=== PATIENT | male | born 1995 | race Caucasian/White ===

== ENCOUNTER 2020-03-04 10:14 | Emergency (ER) | payer BC, OTHER ==
--- NOTE | 2020-03-04 12:04 | RAD REPORT ---
EXAM DESCRIPTION: RAD -Hand Left 3 View - 03/04/2020 11:35 am CLINICAL HISTORY: Left hand pain status post injury FINDINGS: No fracture or dislocation is seen. A soft tissue laceration first digit. 3 millimeter round foreign body within the soft tissues adjacen t to third and fourth metacarpals
[2020-03-04] MEDS ORDERED: LIDOCAINE 1% W/EPI 1:100,000 MDV 20 ML VIAL ONE (12:30)
[2020-03-04] MEDS ORDERED: CEPHALEXIN 250 MG CAP ONE (12:46)
[2020-03-04] MEDS ORDERED: DOXYCYCLINE 100 MG CAP PO ONE (12:46)
[2020-03-04] MEDS ORDERED: TETANUS & DIPHTHERIA TOX,ADULT 0.5 ML VIAL ONE (12:46)
--- NOTE | 2020-03-04 13:12 | EDPHYS ---
Physician Documentation [facility] Name: Crispin Ruiz Age: 24 yrs Sex: Male : 1995 Arrival Date: 03/04/2020 Time: 10:17 Bed 24 Private MD: ED Physician Nnamdi Nichole HPI: 03/04 12:55 This 24 yrs old Male presents to ER via Ambulatory with complaints of Thumb julia Injury. 12:55 The patient or guardian reports decreased range of motion, a laceration, pain. The julia complaints affect the MCP of left thumb. Context: The problem was sustained outdoors. Onset: The symptoms/episode began/occurred just prior to arrival. Modifying factors: The symptoms are alleviated by holding still, the symptoms are aggravated by movement. Associated signs and symptoms: The patient has no apparent associated signs or symptoms. Severity of symptoms: At their worst the symptoms were mild, in the emergency department the symptoms are unchanged. The patient has not experienced similar symptoms in the past. Historical: - Allergies: 10:40 No Known Allergies; sv - PMHx: 10:40 None; sv - PSHx: 10:40 None; sv - Immunization history:: Flu vaccine is not up to date. - Social history:: Smoking status: Patient denies any tobacco usage or history of. - Family history:: not pertinent. ROS: 12:55 Constitutional: Negative for fever, chills, and weight loss, Eyes: Negative for injury, julia pain, redness, and discharge, ENT: Negative for injury, pain, and discharge, Neck: Negative for injury, pain, and swelling, Cardiovascular: Negative for chest pain, palpitations, and edema, Respiratory: Negative for shortness of breath, cough, wheezing, and pleuritic chest pain, Abdomen/GI: Negative for abdominal pain, nausea, vomiting, diarrhea, and constipation, Back: Negative for injury and pain, : Negative for injury, bleeding, discharge, and swelling, Skin: Negative for injury, rash, and discoloration, Neuro: Negative for headache, weakness, numbness, tingling, and seizure, Psych: Negative for depression, anxiety, suicide ideation, homicidal ideation, and hallucinations, Allergy/Immunology: Negative for hives, rash, and allergies, Endocrine: Negative for neck swelling, polydipsia, polyuria, polyphagia, and marked weight changes, Hematologic/Lymphatic: Negative for swollen nodes, abnormal bleeding, and unusual bruising. 12:55 MS/extremity: Positive for decreased range of motion, pain, tenderness. Exam: 12:55 Constitutional: This is a well developed, well nourished patient who is awake, alert, julia and in no acute distress. Head/Face: Normocephalic, atraumatic. Eyes: Pupils equal round and reactive to light, extra-ocular motions intact. Lids and lashes normal. Conjunctiva and sclera are non-icteric and not injected. Cornea within normal limits. Periorbital areas with no swelling, redness, or edema. ENT: Nares patent. No nasal discharge, no septal abnormalities noted. Tympanic membranes are normal and external auditory canals are clear. Oropharynx with no redness, swelling, or masses, exudates, or evidence of obstruction, uvula midline. Mucous membranes moist. Neck: Trachea midline, no thyromegaly or masses palpated, and no cervical lymphadenopathy. Supple, full range of motion without nuchal rigidity, or vertebral point tenderness. No Meningismus. Chest/axilla: Normal chest wall appearance and motion. Nontender with no deformity. No lesions are appreciated. Cardiovascular: Regular rate and rhythm with a normal S1 and S2. No gallops, murmurs, or rubs. Normal PMI, no JVD. No pulse deficits. Respiratory: Lungs have equal breath sounds bilaterally, clear to auscultation and percussion. No rales, rhonchi or wheezes noted. No increased work of breathing, no retractions or nasal flaring. Abdomen/GI: Soft, non-tender, with normal bowel sounds. No distension or tympany. No guarding or rebound. No evidence of tenderness throughout. Back: No spinal tenderness. No costovertebral tenderness. Full range of motion. Male : Normal genitalia with no discharge or lesions. Skin: Warm, dry with normal turgor. Normal color with no rashes, no lesions, and no evidence of cellulitis. Neuro: Awake and alert, GCS 15, oriented to person, place, time, and situation. Cranial nerves II-XII grossly intact. Motor strength 5/5 in all extremities. Sensory grossly intact. Cerebellar exam normal. Normal gait. Psych: Awake, alert, with orientation to person, place and time. Behavior, mood, and affect are within normal limits. 12:55 Musculoskeletal/extremity: ROM: intact in all extremities, full active range of motion, full passive range of motion, in the lateral aspect of left hand, Circulation is intact in all extremities. Sensation intact. Compartment Syndrome exam of affected extremity: is normal. no pain, with passive ROM, no numbness, no tingling, no sensation deficit. Vital Signs: 10:40 BP 105 / 99; Pulse 61; Resp 16; Temp 98.1; Pulse Ox 100% ; Weight 70.31 kg; Height 6 sv ft. 0 in. (182.88 cm); 10:40 Body Mass Index 21.02 (70.31 kg, 182.88 cm) sv Laceration: 13:10 Wound Repair of 3.5cm ( 1.4in ) subcutaneous laceration to dorsal aspect of proximal julia phalanx of left thumb and palmar aspect of proximal phalanx of left thumb and MCP of left thumb. Linear shaped.. Distal neuro/vascular/tendon intact. Anesthesia: Local anesthetic administered with 8 mls of 1% lidocaine w/ Epi. Wound prep: Moderate cleansing, Copious irrigation. Skin closed with 8 5-0 Prolene using vertical mattress sutures and sterile technique. Dressed with Neosporin, pressure dressing, non-adherent dressing. Patient tolerated well. MDM: 11:52 Patient medically screened. [facility] 13:02 Differential diagnosis: open fracture. Data reviewed: vital signs, nurses notes, [facility] radiologic studies, plain films. Data interpreted: contact center consultant: rate is 61 beats/min, rhythm is regular, Pulse oximetry: on room air is 100 %. Test interpretation: by ED physician or midlevel provider: plain radiologic studies. Counseling: I had a detailed discussion with the patient and/or guardian regarding: the historical points, exam findings, and any diagnostic results supporting the discharge/admit diagnosis, lab results, radiology results, the need for outpatient follow up, for definitive care, a hand specialist. 13:10 Physician consultation: Arash Montelongo MD and will see patient in office, tomorrow 12 [facility] 2 pm. 03/04 10:47 Order name: Hand Left 3 View XRAY sv 03/04 12:23 Order name: Prolene, Sutures; Complete Time: 12:25 [facility] 03/04 12:23 Order name: Dressing - Wound; Complete Time: 12:25 [facility] 03/04 12:23 Order name: Gloves, Sterile; Complete Time: 12:25 [facility] 03/04 12:23 Order name: Setup Suture Tray; Complete Time: 12:25 [facility] 03/04 13:10 Order name: Splint - Thumb Spica; Complete Time: 13:25 [facility] Administered Medications: 12:36 Drug: Doxycycline 200 mg Route: PO; 12:55 Follow up: Response: No adverse reaction; Medication administered at discharge. 12:36 Drug: KeFLEX 500 mg Route: PO; 12:55 Follow up: Response: Medication administered at discharge. 12:37 Drug: Lidocaine-Epinephrine -1%: (1:100,000) 5 ml {Note: adminstered by moreno Perez MD.} Volume: 20 ml; Route: Infiltration; Site: wound; 12:54 Drug: Tetanus-Diphtheria Toxoid Adult 0.5 ml {Furn[employer] Combination [employer]st: [employer]. Exp: 06/15/2021. Lot #: [id number]. } Route: IM; Site: left deltoid; 13:34 Follow up: Response: No adverse reaction 13:12 Drug: Neosporin Ointment 1 application Route: Topical; Site: affected area; Disposition: 03/04/20 13:12 Discharged to Home. Impression: Laceration without foreign body of left hand - thumb. - Condition is Stable. - Discharge Instructions: Laceration Care, Adult, Laceration Care, Adult, [id number]. - Prescriptions for Keflex 500 mg Oral Capsule - take 1 capsule by ORAL route every 6 hours for 7 days; 28 capsule. Tylenol- Codeine #3 300-30 mg Oral Tablet - take 2 tablets by ORAL route every 6 hours As needed; 24 tablet. Doxycycline Hyclate 100 mg Oral Tablet - take 1 tablet by ORAL route every 12 hours; 14 tablet. - Medication Reconciliation Form, Thank You Letter, Antibiotic Education, Prescription Opioid Use form. - Follow up: Private Physician; When: 2 - 3 days; Reason: Recheck today's complaints, Re-evaluation by your physician. Follow up: Arash Montelongo; When: 2 - 3 days; Reason: Recheck today's complaints, Re-evaluation by your physician. - Problem is new. - Symptoms have improved. Signatures: Dispatcher [employer] Gloria Sy RN RN Nnamdi Paula MD MD cha Smirch, Shelby, RN RN ss Corrections: (The following items were deleted from the chart) 13:34 13:12 03/04/2020 13:12 Discharged to Home. Impression: Laceration without foreign body ss of left hand - thumb. Condition is Stable. Forms are Medication Reconciliation Form, Thank You Letter, Antibiotic Education, Prescription Opioid Use. Follow up: Private Physician; When: 2 - 3 days; Reason: Recheck today's complaints, Re-evaluation by your physician. Follow up: Arash Montelongo; When: 2 - 3 days; Reason: Recheck today's complaints, Re-evaluation by your physician. Problem is new. Symptoms have improved. julia
--- NOTE | 2020-03-04 13:12 | ER ---
Nurse's Notes [facility] Name: Crispin Ruiz Age: 24 yrs Sex: Male : 1995 Arrival Date: 03/04/2020 Time: 10:17 Bed 24 Private MD: Diagnosis: Laceration without foreign body of left hand-thumb Presentation: 03/04 10:39 Chief complaint: Patient states: laceration to left thumb with a cleaning knife. sv Coronavirus screen: Client denies travel out of the [place] in the last 14 days. At this time, the client does not indicate any symptoms associated with coronavirus-19. Ebola Screen: No symptoms or risks identified at this time. Risk Assessment: Do you want to hurt yourself or someone else? Patient reports no desire to harm self or others. Onset of symptoms was March 04, 2020. 10:39 Method Of Arrival: Ambulatory sv 10:39 Acuity: CHEMA 3 sv Triage Assessment: 10:39 General: Appears in no apparent distress. uncomfortable, Behavior is calm, cooperative, sv appropriate for age. Pain: Pain: Complains of pain in left thumb. 10:39 Neuro: Level of Consciousness is awake, alert, obeys commands, Oriented to person, sv place, time, situation, Gait is steady. Respiratory: Respiratory effort is even, unlabored. Injury Description: Laceration sustained to dorsal aspect of proximal phalanx of left thumb is 2.6 to 7.5 cm long, mild bleeding noted. 10:39 Musculoskeletal: Range of motion: intact in all extremities. sv Historical: - Allergies: 10:40 No Known Allergies; sv - PMHx: 10:40 None; sv - PSHx: 10:40 None; sv - Immunization history:: Flu vaccine is not up to date. - Social history:: Smoking status: Patient denies any tobacco usage or history of. - Family history:: not pertinent. Screenin:32 Abuse screen: Denies threats or abuse. Denies injuries from another. Nutritional ss screening: No deficits noted. Tuberculosis screening: Never had TB. Fall Risk None identified. Assessment: 10:48 Reassessment: Ok by Dr Nichole to place an xray. sv 12:00 General: Appears in no apparent distress. comfortable, Behavior is cooperative, ss anxious. Pain: Complains of pain in lateral aspect of left hand and MCP of left thumb and dorsal aspect of proximal phalanx of left thumb Pain currently is 5 out of 10 on a pain scale. Quality of pain is described as tender. Neuro: Level of Consciousness is awake, alert, obeys commands, Oriented to person, place, time, situation. Cardiovascular: Pulses are palpable in right radial artery and left radial artery. Respiratory: Respiratory effort is even, unlabored, Respiratory pattern is regular, symmetrical. EENT: Nares are clear Oral mucosa is moist. Derm: Skin is intact, is healthy with good turgor, Skin is dry, Skin is pink, warm \T\ dry. normal. Injury Description: Laceration sustained to MCP of left thumb is 2.6 to 7.5 cm long, was sustained 30-60 minutes ago. no active bleeding noted at this time. 13:32 Reassessment: Patient appears in no apparent distress at this time. Patient and/or ss family updated on plan of care and expected duration. Pain level reassessed. Patient is alert, oriented x 3, equal unlabored respirations, skin warm/dry/pink. Vital Signs: 10:40 BP 105 / 99; Pulse 61; Resp 16; Temp 98.1; Pulse Ox 100% ; Weight 70.31 kg; Height 6 sv ft. 0 in. (182.88 cm); 10:40 Body Mass Index 21.02 (70.31 kg, 182.88 cm) sv ED Course: 10:17 Patient arrived in ED. ds1 10:39 Triage completed. sv 10:39 Arm band placed on. sv 11:35 Hand Left 3 View XRAY In Process Unspecified. EDMS 11:52 Nnamdi Nichole MD is Attending Physician. julia 12:54 Amber Leger, [place] is Primary Nurse. ss 12:57 Assist provider with laceration repair on MCP of left thumb and dorsal aspect of ss proximal phalanx of left thumb that was between 2.6 to 7.5 cm using sutures. Set up tray. Performed by Nnamdi Nichole MD Dressed with Kerlix, Neosporin, Patient tolerated well. Patient did not have IV access during this emergency room visit. 13:12 Arash Montelongo MD is Referral Physician. julia 13:25 Bryce wrap to left thumb Orthoglass splint: Thumb spica splint applied on left forearm. jp3 13:32 Patient has correct armband on for positive identification. Bed in low position. Call light in reach. Administered Medications: 12:36 Drug: Doxycycline 200 mg Route: PO; 12:55 Follow up: Response: No adverse reaction; Medication administered at discharge. 12:36 Drug: KeFLEX 500 mg Route: PO; 12:55 Follow up: Response: Medication administered at discharge. 12:37 Drug: Lidocaine-Epinephrine -1%: (1:100,000) 5 ml {Note: adminstered by moreno Perez MD.} Volume: 20 ml; Route: Infiltration; Site: wound; 12:54 Drug: Tetanus-Diphtheria Toxoid Adult 0.5 ml {[employer]: [email or web address]. Exp: ss 06/15/2021. Lot #: [id number]. } Route: IM; Site: left deltoid; 13:34 Follow up: Response: No adverse reaction 13:12 Drug: Neosporin Ointment 1 application Route: Topical; Site: affected area; Outcome: 13:12 Discharge ordered by MD. dumont 13:32 Discharged to home ambulatory, with family. 13:32 Condition: good 13:32 Discharge instructions given to patient, family, Instructed on discharge instructions, follow up and referral plans. medication usage, Demonstrated understanding of instructions, follow-up care, medications, splint care, Prescriptions given X 3. 13:34 Patient left the ED. Signatures: Dispatcher [employer] EDGloria Bardales RN RN sv Anderson, Corey, MD MD cha Sanford, Demi ds1 Amber Leger RN RN Prateek Lee jp3 Corrections: (The following items were deleted from the chart) 12:16 10:39 Pain: [facility]
[2020-03-04 13:49] VITALS: BP 105/99; TEMP 98.1; O2SAT 100
== END 2020-03-04 13:34 | disposition home or self-care (01) ==
LOC: ER 10:14
PROC: 0JQK0ZZ Repair Left Hand Subcutaneous Tissue and Fascia, Open Approach (ICD-10-PCS; principal; 2020-03-04)
DX: S61.012A Laceration without foreign body of left thumb without damage to nail, initial encounter (principal); W45.8XXA Other foreign body or object entering through skin, initial encounter; Y93.9 Activity, unspecified; Y92.89 Other specified places as the place of occurrence of the external cause; Z23 Encounter for immunization
CPT/HCPCS: 90471; 90714; 99284

== ENCOUNTER 2020-03-06 07:28 | Day surgery (SDC) | payer BC ==
[2020-03-06] MEDS ORDERED: Ringers Lactate 1,000 ML IV ONE (08:12)
[2020-03-06] MEDS ORDERED: CEFAZOLIN/SWI 1gm 1 GM/10 ML SYR ONE (08:12)
[2020-03-06] MEDS ORDERED: LIDOCAINE 1% MPF 30 ML VIAL ONE (08:16)
[2020-03-06] MEDS ORDERED: LIDOCAINE 2% MPF 5 ML VIAL ONE (09:08)
[2020-03-06] MEDS ORDERED: FENTANYL CITR 100 MCG/2 ML ONE (09:08)
[2020-03-06] MEDS ORDERED: MIDAZOLAM HCL 2 MG/2 ML INJ ONE (09:08)
[2020-03-06] MEDS ORDERED: ONDANSETRON 4 MG/2 ML VIAL ONE (09:09)
[2020-03-06] MEDS ORDERED: propofoL 200 MG/20 ML VIAL IV ONE (09:09)
[2020-03-06] MEDS ORDERED: KETOROLAC 30 MG/ML INJ ONE (09:09)
[2020-03-06] MEDS ORDERED: dexAMETHasone 10 MG/ML VIAL ONE ×2 (09:09→09:40)
[2020-03-06] MEDS ORDERED: ROPLVACAINE HCL 40 ML ONE (09:33)
[2020-03-06] MEDS: HYDROMORPHONE HCL 1 MG/ML INJ ONE ×2 (10:22→10:27)
[2020-03-06] MEDS ORDERED: CEFAZOLIN SODIUM 1 GM/VIAL ONE (10:42)
[2020-03-06] MEDS ORDERED: NS 0.9% VIAL 10 ML ONE (10:42)
[2020-03-06] MEDS ORDERED: Mastisol Adhesive Liq ONE (11:06)
[2020-03-06] MEDS ORDERED: CODEINE 30MG/APAP 300MG TAB PO ONE (11:10)
[2020-03-06 11:16] VITALS: BP 112/75; TEMP 97.2; O2SAT 100
--- NOTE | 2020-03-06 11:16 | OP ---
Surgeon: Arash Montelongo MD Preoperative Diagnosis: Partial laceration of extensor pollicis longus. Postoperative Diagnosis: Partial laceration of extensor pollicis longus. Procedure Performed: Debridement of skin and subcutaneous tissue, partial EPL tendon repair, simple closure of 3 cm wound and splint. Anesthesia: General. Operative Note: After satisfactory induction of general anesthesia, the hand was prepped with Betadine scrub, Betadine paint. Dry sterile drapes applied in usual manner. The arm was elevated, exsanguinated with an Esmarch, tourniquet inflated to 250 mmHg. Hand placed on the OR table. The patient has had a laceration over the extensor surface on the radial side. Skin and subcutaneous tissue debrided as needed. The flap was elevated. The laceration involved the ulnar aspect of the EPL. The joint was opened and irrigated with 3 L of dilute Betadine solution. Horizontal mattress sutures of 4-0 Prolene were used to repair the EPL, then tourniquet was released. Electrocautery was used for hemostasis. Wound was closed with 4-0 Prolene vertical mattress, half buried mattress. Dressed with Xeroform, 2 inch Kelli, Kerlix, and a thumb spica splint holding the thumb extension. Prior to dressing,marcaine was injected 7 cc 0.5%. PETER/MEGHA Voice ID: [id number] Report ID: [id number] MTDD
[2020-03-06] MEDS ORDERED: CODEINE 30MG/APAP 300MG TAB ONE (11:20)
== END 2020-03-06 11:50 | disposition home or self-care (01) ==
LOC: OR 07:28
PROVIDERS: ATTEND Specialist
PROC: 0HQGXZZ Repair Left Hand Skin, External Approach (ICD-10-PCS; 2020-03-06)
PROC: 0LQ80ZZ Repair Left Hand Tendon, Open Approach (ICD-10-PCS; principal; 2020-03-06 09:00)
DX: S66.222A Laceration of extensor muscle, fascia and tendon of left thumb at wrist and hand level, initial encounter (principal); S61.012A Laceration without foreign body of left thumb without damage to nail, initial encounter; Z20.828 Contact with and (suspected) exposure to other viral communicable diseases; W26.0XXA Contact with knife, initial encounter
CPT/HCPCS: 26418; 12002; U0002; J2704; J2250; J3010; J1100 ×2; J2795; J1170; J0690 ×2; J7120; J2405